=== PATIENT | female | born 1935 | race Caucasian/White ===

== ENCOUNTER 2017-05-16 00:34 | Inpatient (IN) | payer MEDICARE, OTHER ==
[~2017-05-16] VITALS: Ht 152.4 cm; Wt 60.1 kg
[2017-05-16] MEDS ORDERED: AMLO10TA2 PO (00:58)
[2017-05-16] MEDS ORDERED: METO50TA82 PO (00:58)
[2017-05-16] MEDS ORDERED: SIMV40TA3 PO (00:58)
[2017-05-16] MEDS ORDERED: BENA20TA2 PO (00:58)
[2017-05-16 00:59] LABS: BASOPHILS # (AUTO) 0.02 x10^3/uL (0-0.1); BASOPHILS % (AUTO) 0 % (0-1); EOSINOPHILS # (AUTO) 0.04 x10^3/uL (0-0.4); EOSINOPHILS % (AUTO) 1 % (1-7); LYMPHOCYTES # (AUTO) 1.13 x10^3/uL (1-3.4); LYMPHOCYTES % (AUTO) 27 % (22-44); MD NO; MEAN CORPUSCULAR HEMOGLOBIN 29.7 pg (27.0-34.8); MEAN CORPUSCULAR HGB CONC 33.4 g/dL (32.4-35.8); MEAN CORPUSCULAR VOLUME 88.8 fL (80-100); MEAN PLATELET VOLUME 8.6 fL (7.4-10.4); MONOCYTES # (AUTO) 0.36 x10^3/uL (0.2-0.8); MONOCYTES % (AUTO) 9 % (2-9); NEUTROPHILS % (AUTO) 64 % (42-75); PLATELET COUNT 279 x10^3/uL (130-400); RED CELL DISTRIBUTION WIDTH 13.8 % (9.6-15.2)
[2017-05-16] MEDS ORDERED: SODIUM CHLORIDE 0.9% 1,000ML IVBOLUS ONE (01:00)
[2017-05-16] MEDS ORDERED: SODIUM CHLORIDE FLUSH 10ML SYR IVF ONE ×2 (01:00)
[2017-05-16 01:08] LABS: INTERNATIONAL NORMALIZED RATIO 0.98 (0.93-1.1); PROTHROMBIN TIME 10.2 Seconds (9.6-11.5)
[2017-05-16 01:12] LABS: ALANINE AMINOTRANSFERASE 21 U/L (12-78); ALBUMIN 3.8 g/dL (3.4-5.0); ANION GAP 10 mmol/L (5-15); CALCIUM 9.1 mg/dL (8.5-10.1); CHLORIDE 107 mmol/L (98-107); CREATININE 0.96 mg/dL (0.55-1.02)
[2017-05-16 01:15] LABS: ALKALINE PHOSPHATASE 63 U/L (45-117); BILIRUBIN,TOTAL 0.5 mg/dL (0.2-1.0); TOTAL PROTEIN 7.6 g/dL (6.4-8.2)
[2017-05-16 01:36] LABS: CULTURE INDICATED? YES; MICROSCOPIC INDICATED
[2017-05-16] MEDS ORDERED: CEFTRIAXONE PMX 1GM/50ML 50 ML IV ONE (02:30)
[2017-05-16] MEDS ORDERED: NS + 20MEQ KCL 1,000 ML IV SCH (02:47)
[2017-05-16] MEDS ORDERED: LABETALOL 5MG/ML, 20ML IVPush PRN (03:00)
[2017-05-16] MEDS ORDERED: ONDANSETRON 2MG/ML, 2ML IVPush PRN (03:00)
[2017-05-16] MEDS ORDERED: ACETAMINOPHEN 325 MG TABLET PO PRN (03:00)
[2017-05-16] MEDS ORDERED: ENALAPRILAT 1.25 MG/ML, 2ML IV PRN (03:00)
[2017-05-16] MEDS ORDERED: hydrALAzine 20 MG/ML, 1ML IV PRN (03:00)
[2017-05-16] MEDS ORDERED: HYDROcodone/APAP 5/325 TABLET PO PRN (03:00)
[2017-05-16] MEDS: ENOXAPARIN 40 MG/0.4 ML SQ SCH ×2 (03:00→09:44)
[2017-05-16] MEDS ORDERED: POLYETHYLENE GLYCOL 17 GM PACKET PO PRN (03:00)
[2017-05-16] MEDS ORDERED: DOCUSATE 100 MG CAPSULE PO PRN (03:00)
[2017-05-16] MEDS: CEFTRIAXONE PMX 1GM/50ML 50 ML IV SCH (03:44)
[2017-05-16 03:56] VITALS: BP 160/77
[2017-05-16 03:59] LABS: RAPID INFLUENZA A Negative (Negative); RAPID INFLUENZA B Negative (Negative)
[2017-05-16 07:35] VITALS: BP 148/78
[2017-05-16] MEDS: SENNA/DOCUSATE TABLET PO SCH (09:00)
[2017-05-16] MEDS: METOPROLOL TARTRATE 50 MG TABLET PO SCH ×2 (09:43→20:27)
[2017-05-16] MEDS: BENAZEPRIL 20 MG TABLET PO SCH (09:43)
[2017-05-16 14:11] VITALS: BP 164/79
[2017-05-16 19:37] VITALS: BP 153/70
[2017-05-17 02:00] VITALS: BP 153/71
[2017-05-17] MEDS: CEFTRIAXONE PMX 1GM/50ML 50 ML IV SCH (03:16)
[2017-05-17 06:26] LABS: ANION GAP 8 mmol/L (5-15); CALCIUM 8.6 mg/dL (8.5-10.1); CHLORIDE 109 mmol/L (98-107)
[2017-05-17 06:27] LABS: CREATININE 0.79 mg/dL (0.55-1.02)
[2017-05-17 07:59] VITALS: BP 163/71
[2017-05-17] MEDS: SENNA/DOCUSATE TABLET PO SCH (09:00)
[2017-05-17] MEDS: BENAZEPRIL 20 MG TABLET PO SCH (09:03)
[2017-05-17] MEDS: METOPROLOL TARTRATE 50 MG TABLET PO SCH (09:03)
[2017-05-17] MEDS: ENOXAPARIN 40 MG/0.4 ML SQ SCH (09:03)
[2017-05-17] MEDS ORDERED: CEFD300C37 PO (10:41)
== END 2017-05-17 13:50 | disposition home or self-care (01) | DRG 690 ==
LOC: ED 02:13 → EDIP 02:18 → ED 02:25 → SUATTDRO 02:37 → 3NE 03:22 → DCLOUNGE 05-17 13:42
PROVIDERS: ADMIT Family Medicine; ATTEND Family Medicine
PROC: 0T9B70Z Drainage of Bladder with Drainage Device, Via Natural or Artificial Opening (ICD-10-PCS; principal; 2017-05-16)
DX: N39.0 Urinary tract infection, site not specified (principal); E86.0 Dehydration; Z95.1 Presence of aortocoronary bypass graft; I10 Essential (primary) hypertension; E78.5 Hyperlipidemia, unspecified; I25.10 Atherosclerotic heart disease of native coronary artery without angina pectoris; Z82.49 Family history of ischemic heart disease and other diseases of the circulatory system; Z83.3 Family history of diabetes mellitus; Z87.891 Personal history of nicotine dependence; Z95.0 Presence of cardiac pacemaker
CPT/HCPCS: 36415; 70450; 80048; 80053; 81001; 83690; 83735; 85025; 85610; 85730; 87077; 87086; 87186; 87400; 93005; 99285; J0696; J1650; J2405; J3480

== ENCOUNTER 2018-02-02 19:27 | Observation (INO) | payer MEDICARE, OTHER ==
[~2018-02-02] VITALS: Ht 152.4 cm; Wt 52.0 kg
[~2018-02-02 19:27] MED LIST: AMLO10TA6 PO; BENA20TA4 PO; CEFD300C37 PO; METO50TA82 PO; SIMV40TA3 PO
[2018-02-02 19:48] LABS: BASOPHILS # (AUTO) 0.03 x10^3/uL (0-0.1); BASOPHILS % (AUTO) 1 % (0-1); EOSINOPHILS % (AUTO) 2 % (1-7); LYMPHOCYTES # (AUTO) 1.83 x10^3/uL (1-3.4); LYMPHOCYTES % (AUTO) 35 % (22-44); MD NO; MEAN CORPUSCULAR HEMOGLOBIN 29.7 pg (27.0-34.8); MEAN CORPUSCULAR HGB CONC 33.6 g/dL (32.4-35.8); MEAN CORPUSCULAR VOLUME 88.4 fL (80-100); MEAN PLATELET VOLUME 8.8 fL (7.4-10.4); MONOCYTES # (AUTO) 0.45 x10^3/uL (0.2-0.8); MONOCYTES % (AUTO) 9 % (2-9); NEUTROPHILS # (AUTO) 2.88 x10^3/uL (1.8-6.8); NEUTROPHILS % (AUTO) 54 % (42-75); PLATELET COUNT 309 x10^3/uL (130-400); RED BLOOD COUNT 4.77 x10^6/uL (3.82-5.3)
[2018-02-02] MEDS ORDERED: NITR0.4T28 SL (19:55)
[2018-02-02] MEDS ORDERED: ATOR20TA PO (19:55)
[2018-02-02] MEDS ORDERED: OMEP-110 PO (19:55)
[2018-02-02] MEDS ORDERED: FENO54TA17 PO (19:55)
[2018-02-02 20:02] LABS: ALBUMIN 4.1 g/dL (3.4-5.0); ANION GAP 9 mmol/L (5-15); CALCIUM 9.2 mg/dL (8.5-10.1); CHLORIDE 104 mmol/L (98-107); CREATININE 1.71 mg/dL (0.55-1.02)
[2018-02-02 20:05] LABS: TROPONIN I < 0.015 ng/mL (0.000-0.045)
[2018-02-02] MEDS ORDERED: NITROGLYCERIN SINGLE TAB 0.4 MG SL ONE (20:55)
[2018-02-02] MEDS ORDERED: MORPHINE SULFATE 4 MG/ML, 1ML IVPush PRN (21:00)
[2018-02-02] MEDS ORDERED: NITROGLYCERIN SINGLE TAB 0.4 MG SL PRN (21:00)
[2018-02-02] MEDS ORDERED: ONDANSETRON 2MG/ML, 2ML IVPush PRN ×2 (21:00→21:30)
[2018-02-02] MEDS ORDERED: SODIUM CHLORIDE 0.9% 1,000 ML IV SCH (21:07)
[2018-02-02] MEDS ORDERED: FAMOTIDINE 20 MG TABLET PO SCH (21:30)
[2018-02-02] MEDS ORDERED: NITROGLYCERIN 0.4 MG/SPRAY SL PRN (21:30)
[2018-02-02] MEDS ORDERED: POLYETHYLENE GLYCOL 17 GM PACKET PO PRN (21:30)
[2018-02-02] MEDS ORDERED: morphine SULFATE 10 MG/ML, 1ML IVPush PRN (21:30)
[2018-02-02] MEDS ORDERED: NITROGLYCERIN 0.4 MG BOTTLE (25 TABS) SL PRN ×2 (21:30)
[2018-02-02] MEDS ORDERED: ATORVASTATIN 20 MG TABLET PO SCH (21:30)
[2018-02-02] MEDS ORDERED: ENOXAPARIN 40 MG/0.4 ML SQ SCH (21:30)
[2018-02-02] MEDS ORDERED: HYDROcodone/APAP 5/325 TABLET PO PRN (21:30)
[2018-02-02] MEDS ORDERED: ACETAMINOPHEN 325 MG TABLET PO PRN (21:30)
[2018-02-02] MEDS ORDERED: DOCUSATE 100 MG CAPSULE PO PRN (21:30)
[2018-02-02] MEDS ORDERED: ENOXAPARIN 30 MG/0.3 ML SQ SCH (22:30)
[2018-02-02 22:54] VITALS: BP 137/78
[2018-02-03 01:04] VITALS: BP 158/77
[2018-02-03] MEDS ORDERED: ASPIRIN 325 MG TABLET EC PO SCH (06:00)
[2018-02-03 06:33] LABS: ANION GAP 9 mmol/L (5-15); CALCIUM 8.7 mg/dL (8.5-10.1); CHLORIDE 109 mmol/L (98-107); CHOLESTEROL, TOTAL 152 mg/dL (140-239); CREATININE 1.17 mg/dL (0.55-1.02)
[2018-02-03 06:37] LABS: CHOL/HDL RATIO 3.1; HDL CHOL % 32 % (28-40); HDL CHOLESTEROL (DIRECT) 49 mg/dL (40-60); LDL CHOLESTEROL,CALCULATED 64 mg/dL (54-169); LDL/HDL RATIO 1.3 (0.5-3.0); TRIGLYCERIDES 193 mg/dL (50-200); TROPONIN I < 0.015 ng/mL (0.000-0.045); VLDL CHOLESTEROL 39 mg/dL (0-25)
[2018-02-03 07:45] VITALS: BP 124/74
[2018-02-03] MEDS ORDERED: FAMOTIDINE 20 MG TABLET PO SCH (09:00)
[2018-02-03] MEDS ORDERED: AMLODIPINE 10 MG TAB PO SCH (09:00)
[2018-02-03] MEDS ORDERED: METOPROLOL TARTRATE 50 MG TABLET PO SCH (09:00)
[2018-02-03] MEDS ORDERED: SENNA/DOCUSATE TABLET PO SCH (09:00)
[2018-02-03] MEDS ORDERED: FENOFIBRATE 54 MG TABLET PO SCH (09:00)
[2018-02-03] MEDS ORDERED: REGADENOSON 0.4 MG/5 ML SYRINGE ONE (09:46)
[2018-02-03 13:12] VITALS: BP 126/70
== END 2018-02-03 15:03 | disposition home or self-care (01) ==
LOC: ED 20:40 → INTOOBSV 20:49 → EDIP 20:49 → 5SO 22:23
PROVIDERS: ADMIT Family Medicine; ATTEND Internal Medicine
DX: R07.89 Other chest pain (principal); I25.10 Atherosclerotic heart disease of native coronary artery without angina pectoris; I10 Essential (primary) hypertension; E78.5 Hyperlipidemia, unspecified; K21.9 Gastro-esophageal reflux disease without esophagitis; I49.3 Ventricular premature depolarization; N17.0 Acute kidney failure with tubular necrosis; Z82.49 Family history of ischemic heart disease and other diseases of the circulatory system; Z83.3 Family history of diabetes mellitus; Z95.0 Presence of cardiac pacemaker; Z95.1 Presence of aortocoronary bypass graft
CPT/HCPCS: 36415; 71045; 78452; 80048; 80061; 82040; 83735; 84484; 85025; 93005; 93017; 96372; 99285; A9502; C9898; G0378; J1650; J2785; J7030

== ENCOUNTER 2018-11-15 11:01 | Day surgery (SDC) | payer MEDICARE, OTHER ==
[~2018-11-15] VITALS: Ht 152.4 cm; Wt 61.8 kg
[~2018-11-15 11:01] MED LIST changes: -AMLO10TA6 PO; +AMLO10TA8 PO; +ATOR20TA PO; -BENA20TA4 PO; +BENA20TA54 PO; +FENO54TA17 PO; +NITR0.4T28 SL; +OMEP-110 PO
[2018-11-15] MEDS ORDERED: SODIUM CHLORIDE 0.9% 1,000 ML IV SCH (11:56)
[2018-11-15 12:18] VITALS: BP 145/79
[2018-11-15] MEDS ORDERED: LIDOCAINE-MPF 1%, 5ML ONE (13:37)
== END 2018-11-15 17:15 | disposition home or self-care (01) ==
LOC: OUT 11:01
PROVIDERS: ATTEND Physician Assistant Surgical
DX: M50.122 Cervical disc disorder at C5-C6 level with radiculopathy (principal); M48.02 Spinal stenosis, cervical region; M43.12 Spondylolisthesis, cervical region; M51.14 Intervertebral disc disorders with radiculopathy, thoracic region; M51.17 Intervertebral disc disorders with radiculopathy, lumbosacral region; M48.07 Spinal stenosis, lumbosacral region; I10 Essential (primary) hypertension; Z72.89 Other problems related to lifestyle; Z79.899 Other long term (current) drug therapy; Z95.5 Presence of coronary angioplasty implant and graft; Z95.0 Presence of cardiac pacemaker; Z82.49 Family history of ischemic heart disease and other diseases of the circulatory system; Z82.61 Family history of arthritis
CPT/HCPCS: 62284; 72126; 72129; 72132; J7030; Q9965

== ENCOUNTER 2020-07-30 06:42 | Day surgery (SDC) | payer MEDICARE, OTHER ==
[~2020-07-30] VITALS: Ht 149.9 cm; Wt 60.5 kg
[~2020-07-30 06:42] MED LIST changes: +AMLO-211 PO; -AMLO10TA8 PO; +SIMV40TA20 PO; -SIMV40TA3 PO
[2020-07-30] MEDS ORDERED: ASPI81TA45 PO (07:13)
[2020-07-30] MEDS ORDERED: CRAN1CAP8 PO (07:13)
[2020-07-30] MEDS ORDERED: FURO-93 PO (07:13)
[2020-07-30] MEDS ORDERED: MIDAZOLAM 1 MG/ML, 5ML ONE (07:15)
[2020-07-30] MEDS ORDERED: CEFAZOLIN 1,000 MG ONE (07:16)
[2020-07-30] MEDS ORDERED: CEFAZOLIN PMX 1GM/50ML 50 ML ONE (07:16)
[2020-07-30] MEDS ORDERED: FENTANYL PF 100 MCG/2ML ONE (07:16)
[2020-07-30] MEDS ORDERED: LIDOCAINE 2%, 20ML ONE (07:16)
[2020-07-30] MEDS ORDERED: SODIUM CHLORIDE 0.9% 1,000 ML IV SCH (07:30)
[2020-07-30 07:52] LABS: BASOPHILS % (AUTO) 2 % (0-1); EOSINOPHILS % (AUTO) 6 % (1-7); LYMPHOCYTES % (AUTO) 34 % (22-44); MEAN CORPUSCULAR HEMOGLOBIN 28.7 pg (27.0-34.8); MEAN CORPUSCULAR HGB CONC 33.3 g/dL (32.4-35.8); MEAN PLATELET VOLUME 8.7 fL (7.4-10.4); MONOCYTES % (AUTO) 11 % (2-9); NEUTROPHILS % (AUTO) 47 % (42-75); PLATELET COUNT 283 x10^3/uL (130-400); RED BLOOD COUNT 4.61 x10^6/uL (3.82-5.3); RED CELL DISTRIBUTION WIDTH 14.4 % (9.6-15.2)
[2020-07-30 08:05] LABS: ANION GAP 6 mmol/L (5-15); CALCIUM 9.1 mg/dL (8.5-10.1); CHLORIDE 110 mmol/L (98-107); CREATININE 0.98 mg/dL (0.55-1.02)
[2020-07-30] MEDS ORDERED: HOLD MEDICATION MC PRN (08:30)
[2020-07-30] MEDS ORDERED: FUROSEMIDE 20 MG TABLET PO SCH (08:30)
[2020-07-30] MEDS ORDERED: CRANBERRY EXTRACT PO SCH (09:00)
[2020-07-30] MEDS ORDERED: OMEPRAZOLE 20 MG CAPSULE.DR PO SCH (09:00)
[2020-07-30] MEDS ORDERED: METOPROLOL TARTRATE 50 MG TAB PO SCH (09:00)
[2020-07-30] MEDS ORDERED: AMLODIPINE 10 MG TAB PO SCH (09:00)
[2020-07-30] MEDS ORDERED: SODIUM CHLORIDE FLUSH 10ML SYR IVF SCH (09:00)
[2020-07-30] MEDS ORDERED: FENOFIBRATE 54 MG TABLET PO SCH (09:00)
[2020-07-30] MEDS ORDERED: VIT C PO SCH (09:00)
[2020-07-30] MEDS ORDERED: ASPIRIN 81 MG TABLET EC PO SCH (09:00)
[2020-07-30] MEDS ORDERED: ATORVASTATIN 20 MG TABLET PO SCH (21:00)
== END 2020-07-30 09:50 | disposition home or self-care (01) ==
LOC: CACL 06:42
PROVIDERS: ATTEND Internal Medicine Cardiovascular Disease
DX: Z45.010 Encounter for checking and testing of cardiac pacemaker pulse generator [battery] (principal); I49.5 Sick sinus syndrome; I10 Essential (primary) hypertension; I48.0 Paroxysmal atrial fibrillation; I25.10 Atherosclerotic heart disease of native coronary artery without angina pectoris; I47.1 Supraventricular tachycardia; Z79.82 Long term (current) use of aspirin; Z79.899 Other long term (current) drug therapy; Z95.1 Presence of aortocoronary bypass graft
CPT/HCPCS: 33228; 36415; 80048; 85025; 99156; C1785; J0690; J2250; J3010

== ENCOUNTER 2021-01-18 13:52 | Emergency (ER) | payer MEDICARE, OTHER ==
[~2021-01-18] VITALS: Ht 147.3 cm; Wt 56.7 kg
[~2021-01-18 13:52] MED LIST changes: +ASPI81TA45 PO; +CRAN1CAP8 PO; +FURO-93 PO
[2021-01-18 15:46] LABS: BASOPHILS % (AUTO) 0 % (0-1); EOSINOPHILS % (AUTO) 0 % (1-7); LYMPHOCYTES % (AUTO) 18 % (22-44); MEAN CORPUSCULAR HEMOGLOBIN 28.5 pg (27.0-34.8); MEAN CORPUSCULAR HGB CONC 33.7 g/dL (32.4-35.8); MEAN PLATELET VOLUME 8.7 fL (7.4-10.4); MONOCYTES % (AUTO) 13 % (2-9); NEUTROPHILS % (AUTO) 68 % (42-75); PLATELET COUNT 276 x10^3/uL (130-400); RED BLOOD COUNT 4.83 x10^6/uL (3.82-5.3); RED CELL DISTRIBUTION WIDTH 15.1 % (9.6-15.2)
[2021-01-18 15:59] LABS: ALBUMIN 3.7 g/dL (3.4-5.0); ANION GAP 3 mmol/L (5-15); CALCIUM 8.9 mg/dL (8.5-10.1); CHLORIDE 105 mmol/L (98-107)
[2021-01-18 16:03] LABS: ALANINE AMINOTRANSFERASE 25 U/L (12-78); ALKALINE PHOSPHATASE 60 U/L (45-117); BILIRUBIN,TOTAL 0.3 mg/dL (0.2-1.0); CREATININE 0.84 mg/dL (0.55-1.02); TOTAL PROTEIN 7.6 g/dL (6.4-8.2)
[2021-01-18] MEDS ORDERED: CASIRIVIMAB 600 MG, IMDEVIMAB (REGN10987) 600 MG in SODIUM CHLORIDE 0.9% 250 ML IVPB ONE (16:30)
[2021-01-18] MEDS ORDERED: FILTER 0.22 MICRON IV ONE (16:30)
[2021-01-18 17:13] VITALS: BP 122/72
--- NOTE | 2021-01-18 17:14 | NUR ---
DOING WELL WITH REGENRON INFUSION. VSS. NO COMPLAINTS
--- NOTE | 2021-01-18 18:02 | NUR ---
AGAIN DOING WELL POST MEDICATION. NO ILL EFFECTS. WALKED TO RESTROOM. EATING/DRINKING
== END 2021-01-18 18:31 | disposition home or self-care (01) ==
LOC: ED 18:20
DX: U07.1 COVID-19 (principal); I10 Essential (primary) hypertension; E78.5 Hyperlipidemia, unspecified; I25.810 Atherosclerosis of coronary artery bypass graft(s) without angina pectoris
CPT/HCPCS: 36415; 71045; 80053; 85025; 87635; 99284; M0243